=== PATIENT | male | born 2000 | race Hispanic/Latino ===

== ENCOUNTER 2020-12-01 06:37 | Emergency (ER) | payer OTHER ==
[~2020-12-01] VITALS: Ht 182.9 cm; Wt 120.7 kg
[2020-12-01 06:39] VITALS: BP 136/88
== END 2020-12-01 08:10 | disposition home or self-care (01) ==
LOC: M ED 06:37
DX: U07.1 COVID-19 (principal)

== ENCOUNTER 2021-06-27 19:57 | Emergency (ER) | payer OTHER ==
[~2021-06-27] VITALS: Ht 182.9 cm; Wt 111.9 kg
--- NOTE | 2021-06-27 20:53 | REPVR ---
PROCEDURE INFORMATION: Exam: XR Left Foot Exam date and time: 06/27/2021 8:15 PM Age: 21 years old Clinical indication: Pain; Foot; Left; Additional info: Heavy object fell on foot TECHNIQUE: Imaging protocol: XR Left foot. Views: 3 or more views. COMPARISON: No relevant prior studies available. FINDINGS: Bones/joints: Normal. Soft tissues: Normal. IMPRESSION: No acute findings. Electronically signed by: Ferdinand Reddy On 06/27/2021 20:53:14 PM
[2021-06-27 22:54] VITALS: BP 128/79
== END 2021-06-27 22:56 | disposition home or self-care (01) ==
LOC: M ED 19:57
DX: S90.32XA Contusion of left foot, initial encounter (principal); W20.8XXA Other cause of strike by thrown, projected or falling object, initial encounter; Y92.89 Other specified places as the place of occurrence of the external cause; Y93.9 Activity, unspecified; Y99.1 Military activity